=== PATIENT | female | born 1950 | race Caucasian/White ===

== ENCOUNTER → 2016-06-16 | Outpatient (CLI) | payer OTHER ==
--- NOTE | 2016-06-16 12:04 | REPMRS ---
Patient History The patient states she has not had a clinical breast exam in over a year. Patient is postmenopausal. Family history of breast cancer in niece under age 50. Digital Woman Screen Mammo: June 16, 2016 - Exam #: [id number] Bilateral CC and MLO view(s) were taken. Technologist: Jammie Witt, Technologist Prior study comparison: May 21, 2015, digital woman screen mammo performed at [facility]. December 06, 2013, digital woman screen mammo performed at [facility]. July 16, 2012, digital woman screen mammo performed at [facility]. FINDINGS: There are scattered fibroglandular densities. There has been no change in the appearance of the mammogram from the prior studies. There is a mild amount of scattered fibroglandular density which is fairly symmetric. There is no interval development of dominant mass, architectural distortion, or clustered microcalcification suggestive of malignancy. ASSESSMENT: BI-RADS/ACR category 1 mammogram. Negative. Recommendation Routine screening mammogram in 1 year (for women over age 40). This mammogram was interpreted with the aid of an FDA-approved computer-aided dectection system. Electronically Signed By: Joe Hines MD 06/16/16 [id number]
== END ==
LOC: M WHC 10:18
PROVIDERS: ATTEND Family Medicine
DX: Z12.39 Encounter for other screening for malignant neoplasm of breast (principal)

== ENCOUNTER → 2017-05-11 | Outpatient (REF) | payer OTHER ==
[2017-05-11 15:17] LABS: CHLAMYDIA DNA AMPLIFICATION NEGATIVE (NEGATIVE); GC DNA AMPLIFICATION NEGATIVE (NEGATIVE)
== END ==
LOC: M SFHCPLAZ 13:04
DX: L29.8 Other pruritus (principal)
CPT/HCPCS: 87186; 87205

== ENCOUNTER → 2017-08-31 | Outpatient (CLI) | payer OTHER | LOC: M WHC 13:01 | DX: Z12.31 Encounter for screening mammogram for malignant neoplasm of breast (principal) | CPT/HCPCS: 77067 ==

== ENCOUNTER 2018-07-20 15:09 | Emergency (ER) | payer MEDICARE, OTHER ==
[~2018-07-20] VITALS: Ht 154.9 cm; Wt 72.7 kg
[2018-07-20] MEDS ORDERED: LISI-538 OR (15:35)
[2018-07-20] MEDS ORDERED: CYAN1000VL IM (15:35)
[2018-07-20] MEDS ORDERED: NAPR-885 PO (15:35)
[2018-07-20] MEDS ORDERED: METF500T4 OR (15:35)
[2018-07-20] MEDS ORDERED: VITA500045 PO (15:35)
[2018-07-20] MEDS ORDERED: FERR325T3 PO (15:35)
[2018-07-20 15:46] LABS: BASO % 0.6 % (0.0-1.0); EOS # 0.4 10^3/uL (0.0-0.50); HEMATOCRIT 35.8 % (36.0-47.0); HEMOGLOBIN 11.7 g/dl (12.0-15.5); LYMPH # 3.1 10^3/uL (1.5-4.5); MEAN CORPUSCULAR HEMOGLOBIN 32.2 pg (27.0-33.0); MEAN CORPUSCULAR HGB CONC 32.7 g/dl (32.0-36.5); MEAN CORPUSCULAR VOLUME 98.6 fl (80.0-96.0); MONO # 0.4 10^3/uL (0.0-0.8); MONO % 5.9 % (0.0-5.0); NEUTROPHILS # 3.2 10^3/uL (1.8-7.7); NEUTROPHILS % 45.2 % (36.0-66.0); PLATELET COUNT, AUTOMATED 285 10^3/uL (150-450); RED BLOOD COUNT 3.63 10^6/uL (4.00-5.40); WHITE BLOOD COUNT 7.1 10^3/uL (4.0-10.0)
[2018-07-20 16:13] LABS: BLOOD UREA NITROGEN 19 MG/DL (7-18); CALCIUM LEVEL 8.4 MG/DL (8.8-10.2); CARBON DIOXIDE LEVEL 26 MEQ/L (21-32); CHLORIDE LEVEL 112 MEQ/L (98-107); CPK CREATINE PHOSPHOKINASE 213 U/L (26-192); CREATININE FOR GFR 0.74 MG/DL (0.55-1.30); GLOMERULAR FILTRATION RATE > 60.0 (>39); GLUCOSE, FASTING 102 MG/DL (70-100); POTASSIUM SERUM 3.8 MEQ/L (3.5-5.1); SODIUM LEVEL 144 MEQ/L (136-145); TROPONIN I < 0.02 NG/ML (< 0.10)
[2018-07-20] MEDS ORDERED: ISOVUE-370 76% 100ML VIAL (Q9967) As Ordered ONE (16:34)
--- NOTE | 2018-07-20 16:38 | REP ---
Portable chest x-ray: Single view. History: Chest pain radiating down the left arm and back. Findings: The lungs are symmetrically aerated and free of infiltrate. There is a small linear opacity in the left base consistent with plate-like atelectasis or conceivably scarring. Pleural angles are sharp. Heart size is normal. EKG electrodes are seen. Pulmonary vascular markings are normal. There are osteoarthritic changes in the shoulders. No acute bony abnormality. Impression: Linear fibrosis versus plate-like atelectasis left base. Otherwise no active disease. Electronically Signed by Cameron Hines MD 07/20/2018 10:32 P
--- NOTE | 2018-07-20 17:44 | REP ---
REASON FOR EXAM: Chest pain and dyspnea. COMPARISON: None. CONTRAST: 100 mL Isovue-370. There is excellent visualization of the pulmonary arterial vasculature. There are no focal filling defects present that would be considered consistent with pulmonary emboli. Although seen in somewhat of a limited fashion, the thoracic aorta is normal. There is no mediastinal or hilar adenopathy. There are no pleural or pericardial effusions. The imaged upper abdomen and imaged osseous structures are within normal limits. Evaluation of the lung mcdermott shows scattered curvilinear and patchy bibasilar opacities. There are a few incidental bilateral calcified granulomas. There is evidence of mild cylindrical basilar bronchiectasis. IMPRESSION:1. There is no evidence of a pulmonary embolus. 2. Bibasilar opacities most consistent with subsegmental atelectatic and or fibrotic changes. 3. Mild bibasilar cylindrical bronchiectasis. 4. Other findings are described above. Electronically Signed by Osmani Guzman DO 07/21/2018 10:21 A
--- NOTE | 2018-07-20 19:51 | ECGEPIP ---
Stationary ECG Study [facility] - ED Test Date: 2018-07-20 Pat Name: EDMOND GREY Department: Room: - Gender: F Business Systems Administrator: : 1950 Requested By: Roney Ybarra Order Number: [id number] Reading MD: Donnell Hawkins Measurements Intervals [place] Rate: 65 P: 22 MS: 166 QRS: -7 QRSD: 86 T: 46 QT: 431 QTc: 451 Interpretive Statements SINUS RHYTHM MINIMAL VOLTAGE CRITERIA FOR LVH, CONSIDER NORMAL VARIANT Low QRS complex voltage in the anterior leads Nonspecific T wave abnormality Comparison tracing not on file Electronically Signed On 07-20-2018 19:50:55 EDT by Donnell Hawkins
[2018-07-20 20:16] LABS: CPK CREATINE PHOSPHOKINASE 175 U/L (26-192); MB/CK RELATIVE INDEX 0.63 (< OR =4); TROPONIN I < 0.02 NG/ML (< 0.10)
[2018-07-20 20:49] VITALS: BP 164/74
--- NOTE | 2018-07-21 20:22 | ECGEPIP ---
Stationary ECG Study [facility] - ED Test Date: 2018-07-20 Pat Name: EDMOND GREY Department: Room: - Gender: F Career Developer: jillian : 1950 Requested By: Roney Ybarra Order Number: [id number] Reading MD: Nita Donis Measurements Intervals [place] Rate: 65 P: 40 NH: 160 QRS: -4 QRSD: 90 T: 52 QT: 410 QTc: 427 Interpretive Statements SINUS RHYTHM MINIMAL VOLTAGE CRITERIA FOR LVH, CONSIDER NORMAL VARIANT NONSPECIFIC T-WAVE ABNORMALITY SIMILAR 07/20/18 Electronically Signed On 07-21-2018 20:21:53 EDT by Nita Donis
== END 2018-07-20 20:52 | disposition home or self-care (01) ==
LOC: EDBD 15:09 → M ED 15:09
DX: R07.89 Other chest pain (principal); E11.9 Type 2 diabetes mellitus without complications; I10 Essential (primary) hypertension; Z86.79 Personal history of other diseases of the circulatory system; Z82.49 Family history of ischemic heart disease and other diseases of the circulatory system
CPT/HCPCS: 36415; 71045; 71275; 80048; 82550; 82553; 84484; 85025; 93005; 93041; 94760; 99285; Q9967

== ENCOUNTER → 2018-08-11 | Outpatient (REF) | payer MEDICARE ==
[~2018-08-11] MED LIST: CYAN1000VL IM; FERR325T3 PO; LISI-538 OR; METF500T4 OR; NAPR-885 PO; VITA500045 PO
[2018-08-11 13:31] LABS: APPEARANCE, URINE CLEAR (CLEAR); BACTERIA, URINE AUTO NEGATIVE (NEGATIVE); BILIRUBIN, URINE AUTO NEGATIVE (NEGATIVE); BLOOD, URINE BLOOD NEGATIVE (NEGATIVE); COLOR, URINE YELLOW (YELLOW); GLUCOSE, URINE (UA) AUTO NEGATIVE (NEGATIVE); KETONE, URINE AUTO NEGATIVE (NEGATIVE); LEUKOCYTE ESTERASE, URINE AUTO 2+ (NEGATIVE); NITRITE, URINE AUTO NEGATIVE (NEGATIVE); PROTEIN, URINE AUTO NEGATIVE (NEGATIVE); RBC, URINE AUTO 2 /HPF (0-3); SQUAMOUS EPITHELIAL CELL UR AU 4 /HPF (0-6); WBC, URINE AUTO 12 /HPF (0-3)
== END ==
LOC: M SFHCPLAZ 13:07
PROVIDERS: ATTEND Physician Assistant Medical
DX: R30.0 Dysuria (principal)
CPT/HCPCS: 81001; 87086; G0463

== ENCOUNTER → 2018-08-13 | Outpatient (REF) | payer MEDICARE ==
[2018-08-17 14:11] LABS: HPV HYBRID CAPTURE II Negative (Negative)
== END ==
LOC: M SFHCWAGY 10:49
PROVIDERS: ATTEND Nurse Practitioner Women's Health
DX: Z12.4 Encounter for screening for malignant neoplasm of cervix (principal); N95.8 Other specified menopausal and perimenopausal disorders
CPT/HCPCS: 87624; G0101; G0123

== ENCOUNTER → 2018-09-01 | Outpatient (CLI) | payer MEDICARE ==
--- NOTE | 2018-09-01 13:47 | REPMRS ---
Patient History The patient states she has not had a clinical breast exam in over a year. Family history of breast cancer under age 50 in niece. No Hormone Replacement Therapy 3D TOMOSYNTHESIS WAS PERFORMED. The Henny Nickerson lifetime risk for breast cancer is 3.3%. Digital Woman Screen Mammo: September 01, 2018 - Exam #: [id number] Bilateral CC and MLO view(s) were taken. Technologist: Jammie Witt, Technologist Prior study comparison: August 31, 2017, bilateral digital woman screen mammo performed at [facility]. June 16, 2016, digital woman screen mammo performed at [facility]. FINDINGS: There are scattered fibroglandular densities. There has been no change in the appearance of the mammogram from the prior studies. There is a mild amount of residual fibroglandular tissue which is fairly symmetric. There is no interval development of dominant mass, architectural distortion, or clustered microcalcification suggestive of malignancy. Assessment: BI-RADS/ACR category 1 mammogram. Negative Mammogram. Recommendation Routine screening mammogram in 1 year (for women over age 40). This mammogram was interpreted with the aid of an FDA-approved computer-aided dectection system. Electronically Signed By: Mike Otto MD 09/01/18 [id number]
== END ==
LOC: M WHC 12:36
PROVIDERS: ATTEND Physician Assistant Medical
DX: Z12.31 Encounter for screening mammogram for malignant neoplasm of breast (principal)

== ENCOUNTER → 2019-05-21 | Outpatient (CLI) | payer MEDICARE ==
[~2019-05-21] MED LIST changes: +METF-791 OR; -METF500T4 OR
--- NOTE | 2019-05-23 08:10 | REP ---
MRI lumbar spine without contrast: History: Degenerative joint disease of the lumbar spine. Comparison radiographs are from April 26, 2019. Technique: Sagittal and axial T1 and T2-weighted scans are acquired in the usual fashion with and without fat saturation. Sequences include spin echo, turbo spin-echo, and STIR imaging sequences. MRI findings: There is an intact disc at the S1-S2 disc level. Lumbar vertebral body heights are preserved. There is some straightening. Conus medullaris tip is noted in good position at L1-L2 disc. There are diffuse degenerative disc disease changes in the lumbar spine with disc space narrowing and signal intensity alteration. There are marrow edema changes on either side of the L4-5 and L2-3 and L3-4 discs. No bony destructive lesion is appreciated. Axial and sagittal images taken at the L1-2 disc level demonstrate minimal central disc bulging. No other finding. At L2-L3, there is mild to moderate central canal stenosis due to diffuse disc bulging and osteophytic ridging, developmentally short pedicles, ligamentum flavum and minimal facet hypertrophy. Midline AP dimension of the thecal sac at the L2-3 intervertebral disc level is 7.5 mm. No foraminal narrowing. At the L3-4 disc level, there is a grade 1 degenerative, 3 mm, spondylolisthesis due to degenerative disc disease and facet osteoarthritis. There is moderate central canal stenosis due to these factors along with diffuse disc bulging and ligamentum flavum and facet hypertrophy. Developmentally short pedicles contribute. The midline AP dimension of the thecal sac is only 5.4 mm and CSF signal is effaced from the thecal sac at the L3-4 disc level due to the spinal stenosis. There is bilateral foraminal disc bulging right a little more so than left at L3-4 as well. The nerve roots do not appear to be compressed or displaced however. At L4-L5, there is facet and ligamentum flavum hypertrophy. There is mild foraminal narrowing on the left at L4-5 due to disc bulging and discogenic spurring along with facet hypertrophy. Canal size is borderline. At L5-S1, there is moderate facet hypertrophy. Mild diffuse disc bulging is seen. There is facet hypertrophy and disc bulging in the neural foramina bilaterally, but nerve roots are surrounded by epidural fat do not appear compressed. The S1-S2 disc margin is unremarkable. Impression: Diffuse degenerative spondylosis changes. The dominant abnormality is moderate central canal stenosis at L3-4. There is mild to moderate central canal stenosis at L2-3. Electronically Signed by Cameron Hines MD 05/23/2019 10:51 A
== END ==
LOC: M RAD 11:00
PROVIDERS: ATTEND Family Medicine
DX: M48.061 Spinal stenosis, lumbar region without neurogenic claudication (principal); M51.36 Other intervertebral disc degeneration, lumbar region; M47.816 Spondylosis without myelopathy or radiculopathy, lumbar region

== ENCOUNTER → 2019-09-14 | Outpatient (CLI) | payer MEDICARE ==
[~2019-09-14] MED LIST changes: -METF-791 OR; +METF-838 OR
--- NOTE | 2019-09-14 16:38 | REPMRS ---
Patient History The patient states she has not had a clinical breast exam in over a year. Family history of breast cancer under age 50 in niece. No Hormone Replacement Therapy Digital Woman Screen Mammo: September 14, 2019 - Exam #: [id number] Bilateral CC and MLO view(s) were taken. Technologist: Valencia Orr, Technologist Prior study comparison: September 01, 2018, bilateral digital woman screen mammo performed at [facility]. August 31, 2017, bilateral digital woman screen mammo performed at [facility]. June 16, 2016, digital woman screen mammo performed at [facility]. FINDINGS: The breast tissue is almost entirely fat. The Volpara volumetric breast density category is: A. There has been no change in the appearance of the mammogram from the prior studies. There is no interval development of dominant mass, architectural distortion, or grouped microcalcification typical of malignancy. 3-D tomosynthesis shows no additional findings. Assessment: BI-RADS/ACR category 1 mammogram. Negative Mammogram. Recommendation Routine screening mammogram of both breasts in 1 year (for women over age 40). This patient's Lifetime Breast Cancer RIsk is estimated at 3.1 %. This mammogram was interpreted with the aid of an FDA-approved computer-aided dectection system. Electronically Signed By: Joe Hines MD 09/14/19 6503
== END ==
LOC: M WHC 15:19
PROVIDERS: ATTEND Family Medicine
DX: Z12.31 Encounter for screening mammogram for malignant neoplasm of breast (principal)

== ENCOUNTER → 2020-03-22 | Outpatient (CLI) | payer MEDICARE ==
[~2020-03-22] MED LIST changes: +ASPI81CH33 PO; +KETO10TAB PO; +METO1TAB32
--- NOTE | 2020-03-22 12:16 | REP ---
INDICATION: HX OF CEREBRAL ANEURYSM, HEADACHE COMPARISON: None. TECHNIQUE: Axial noncontrast images from the skull base to the vertex with coronal reformations. This CT examination was performed using the following dose reduction techniques: Automated exposure control, adjustment of mA and/or kv according to the patient's size, and use of iterative reconstruction technique. FINDINGS: The ventricles, sulci, and cisterns are normal in position and appearance. Otto-white differentiation is maintained. No acute intracranial hemorrhage, mass/mass effect, pathology or trauma/injury. No evidence for acute infarction. No extra-axial fluid collection. Calvarium is intact. Paranasal sinuses and mastoid air cells are clear. IMPRESSION: Normal noncontrast head CT. No evidence for acute intracranial pathology or trauma/injury. <Electronically signed by Matty Walker > 03/22/20 [id number]
== END ==
LOC: M RAD 11:55
PROVIDERS: ATTEND Family Medicine
DX: R51.9 Headache, unspecified (principal); Z86.79 Personal history of other diseases of the circulatory system
CPT/HCPCS: 70450; G0463

== ENCOUNTER → 2020-03-23 | Outpatient (CLI) | payer MEDICARE ==
--- NOTE | 2020-03-23 16:03 | REP ---
INDICATION: HX CEREBRAL ANEURYSM, SEVERE HEADACHE. COMPARISON: Comparison is made with MRI study of the brain from March 24, 2006.. TECHNIQUE: Axial and sagittal imaging planes are utilized for T1 and T2-weighted scans. Sequences include spin-echo, fast spin echo, FLAIR, and diffusion weighted sequences. FINDINGS: No bony calvarial lesion is seen. Craniocervical junction and upper cervical cord are normal in appearance. There is no MR evidence of significant paranasal sinus disease. No intraorbital abnormality is seen. The lateral, third, and fourth ventricles are normal in size and position. Otto-white differentiation pattern is intact above and below the tentorium. There is no evidence of intracranial hemorrhage. No mass, infarction, extra-axial fluid collection or midline shift is seen. No abnormal white matter lesion is seen. There are scattered foci of T2 hyperintensity in the subcortical and periventricular white matter of the supratentorial brain bilaterally. These are similar to but more numerous than the prior study March 24, 2006. IMPRESSION: Small-vessel atherosclerotic changes somewhat raw are prominent than on the 2006 prior study. Otherwise unremarkable MRI study of the brain.. <Electronically signed by Joe Hines > 03/23/20 [id number]
== END ==
LOC: M PLARAD 12:46
PROVIDERS: ATTEND Family Medicine
DX: R51.9 Headache, unspecified (principal); Z86.79 Personal history of other diseases of the circulatory system

== ENCOUNTER → 2020-03-29 | Outpatient (CLI) | payer MEDICARE ==
--- NOTE | 2020-03-29 09:38 | REPVR ---
PROCEDURE INFORMATION: Exam: MR Angiogram Head Without Contrast, Arteries Exam date and time: 03/29/2020 9:07 AM Age: 70 years old Clinical indication: Pain; Headache; Patient HX: H/a; Additional info: Headaches TECHNIQUE: Imaging protocol: MR angiogram head without contrast. Exam focused on the arteries. 3D rendering (Not supervised by radiologist): MIP and/or 3D reconstructed images were created by the technologist. COMPARISON: MRI-Brain without Contrast 03/23/2020 1:46 PM FINDINGS: ANTERIOR CIRCULATION: Right internal carotid artery: Mild to moderate narrowing of the cavernous segment of the right internal carotid artery. No occlusion. No aneurysm. Right middle cerebral artery: No occlusion or significant stenosis. No aneurysm. Right anterior cerebral artery: No occlusion or significant stenosis. No aneurysm. Left internal carotid artery: Mild narrowing of the cavernous segment of the left internal carotid artery. No occlusion. No aneurysm. Left middle cerebral artery: No occlusion or significant stenosis. No aneurysm. Left anterior cerebral artery: No occlusion or significant stenosis. No aneurysm. POSTERIOR CIRCULATION: Right vertebral artery: Right vertebral artery is diminutive in caliber and terminates as PICA, normal variant. Left vertebral artery: Dominant unremarkable left vertebral artery. Basilar artery: No occlusion or significant stenosis. No aneurysm. Right posterior cerebral artery: No occlusion or significant stenosis. No aneurysm. Left posterior cerebral artery: No occlusion or significant stenosis. No aneurysm. IMPRESSION: Mild to moderate narrowing of the cavernous segment of the right internal carotid artery. Mild narrowing of the cavernous segment of the left internal carotid artery. No occlusion. No aneurysm. Right vertebral artery is diminutive in caliber and terminates as PICA, normal variant. Electronically signed by: Carine Trejo On 03/29/2020 09:38:30 AM
== END ==
LOC: M RAD 06:51
PROVIDERS: ATTEND Family Medicine
DX: R51.9 Headache, unspecified (principal); Z86.79 Personal history of other diseases of the circulatory system; I65.21 Occlusion and stenosis of right carotid artery

== ENCOUNTER 2020-05-08 13:26 | Outpatient (CLI) | payer MEDICARE ==
[~2020-05-08] VITALS: Ht 154.9 cm; Wt 79.8 kg
[~2020-05-08 13:26] MED LIST changes: +ALBUTEROL 90 MCG/ACT 8GM HFA INHALER INH PRN; +ALBUTEROL SULFATE 2.5 MG/0.5 ML INH NEB SOLN INH PRN; +EPINEPHrine INJ 1 MG/ML 1ML AMP IM PRN; -LISI-538 OR; +LISI20TA33 OR; +NS 1,000 ML IV SCH; +diphenhydrAMINE 50MG/ML VIAL (J1200) IV PRN; +methylPREDNISolone 125MG 2ML VIAL IV PRN
[2020-05-08 14:29] VITALS: BP 158/81
[2020-05-08] MEDS ORDERED: CASIRIVIMAB (REGN10933) 1,200 MG, IMDEVIMAB (REGN10987) 1,200 MG in NS 230 ML IV ONE (15:00)
[2020-05-08 15:45] VITALS: BP 147/79
[2020-05-08 16:14] VITALS: BP 157/76
[2020-05-08 16:52] VITALS: BP 164/81
[2020-05-08 17:26] VITALS: BP 142/80
[2020-05-08 18:02] VITALS: BP 148/82
[2020-05-09] MEDS ORDERED: UNRESOLVED CLARIFICATION ENTRY XX SCH (00:01)
== END 2020-05-08 18:15 | disposition home or self-care (01) ==
LOC: M OPCLI4PR 13:26 → M 4MAIN 13:48 → M OPCLI4PR 18:15
PROVIDERS: ATTEND Family Medicine
DX: U07.1 COVID-19 (principal)

== ENCOUNTER → 2020-05-25 | Outpatient (CLI) | payer MEDICARE ==
[~2020-05-25] MED LIST changes: -ALBUTEROL 90 MCG/ACT 8GM HFA INHALER INH PRN; -ALBUTEROL SULFATE 2.5 MG/0.5 ML INH NEB SOLN INH PRN; -EPINEPHrine INJ 1 MG/ML 1ML AMP IM PRN; -NS 1,000 ML IV SCH; -diphenhydrAMINE 50MG/ML VIAL (J1200) IV PRN; -methylPREDNISolone 125MG 2ML VIAL IV PRN
--- NOTE | 2020-05-25 14:30 | REPPI ---
INDICATION: COUGH, POST COVID-19 COMPARISON: 02/21/2020 TECHNIQUE: PA and lateral. FINDINGS: The mediastinum and cardiac silhouette are normal. The lung mcdermott are clear and without acute consolidation, effusion, or pneumothorax. Chronic linear scarring in the left lower lung zone again noted. The skeletal structures are intact and normal. IMPRESSION: No acute cardiopulmonary process. <Electronically signed by Matty Walker > 05/25/20 [id number]
== END ==
LOC: M PLAIMG 14:08
PROVIDERS: ATTEND Physician Assistant
DX: R05 Cough (principal); B94.8 Sequelae of other specified infectious and parasitic diseases

== ENCOUNTER → 2020-09-26 | Outpatient (CLI) | payer MEDICARE ==
--- NOTE | 2020-09-26 09:32 | REP ---
INDICATION: Z12.39 SCREENING MAMMO. COMPARISON: Multiple TECHNIQUE: Digital screening mammography was carried out bilaterally in the CC and MLO projections using both 2D and 3D modalities and compared to the prior exams. By history, the patient has no complaints of a palpable breast abnormality or other significant breast complaints.. FINDINGS: The breasts are unchanged in size and shape. Once again, a few scattered heterogenous dense fibroglandular elements are seen bilaterally. In the left breast near the 12 o'clock position there is a very subtle potential hailee slightly asymmetric density. There are no other suspicious features seen in either breast. There are no microcalcifications. There is no skin thickening or nipple retraction. The Volpara volumetric breast density pattern is b. IMPRESSION: BIRADS/ACR category 0 mammogram. Subtle potential hailee density in the left breast as described above for which diagnostic digital magnified spot compression views are recommended in the CC and MLO projections. The spot compression view should be obtained using DBT technique. This patient's Tyrer-Cuzick lifetime breast cancer risk assessment score is 2.9 %. This mammogram was interpreted with the aid of an FDA-approved computer-aided detection system. The patient states she had a clinical breast exam in over a year. The patient letter being requested is M0. RECOMMENDATION: As above <Electronically signed by Osmani Guzman > 09/26/20 0922
--- NOTE | 2020-09-26 09:54 | DEXAMM ---
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 COMPARISON: March 24, 2013 and April 22, 2002.. TECHNIQUE: Bone density was measured using dual-energy x-ray absorptionmetry (DEXA). FINDINGS: AP SPINE L1-L4 BMD 1.618 g/cm2 Young Adult T-Score 3.6 Age Matched Z-Score 5.4. LT FEMUR, TOTAL BMD 1.111 g/cm2 Young Adult T-Score 0.8 Age Matched Z-Score 2.4. LT NECK BMD 1.027 g/cm2 Young Adult T-Score -0.1 Age Matched Z-Score 1.7. RT FEMUR, TOTAL BMD 1.000 g/cm2 Young Adult T-Score -0.1 Age Matched Z-Score 1.5. RT NECK BMD 0.955 g/cm2 Young Adult T-Score -0.6 Age Matched Z-Score 1.2. IMPRESSION: There is normal bone density of the spine. There is normal bone density of the left hip. There is normal bone density of the right hip. The density of the spine has increased 13.7% since the initial exam on April 22, 2002. The density of the spine increased 5.2% since most recent exam on March 24, 2013. The density of the left hip has increased 6.5% since initial exam on April 22, 2002. The density of the left hip has decreased 2.0% since most recent exam on March 24, 2013. The density of the right hip has decreased 8.9% since the initial exam on April 22, 2002. The density of the right hip has decreased 5.5% since the most recent exam on March 24, 2013. FOLLOW-UP: Recommendation for the next bone density exam: 5 years. <Electronically signed by Joe Hines > 09/26/20 0950
== END ==
LOC: M WHC 07:20
PROVIDERS: ATTEND Family Medicine
DX: Z12.31 Encounter for screening mammogram for malignant neoplasm of breast (principal); Z13.820 Encounter for screening for osteoporosis; R92.8 Other abnormal and inconclusive findings on diagnostic imaging of breast; M85.89 Other specified disorders of bone density and structure, multiple sites

== ENCOUNTER → 2020-10-12 | Outpatient (CLI) | payer MEDICARE ==
--- NOTE | 2020-10-12 10:44 | REP ---
INDICATION: ADDITIONAL VIEWS LT BREAST. COMPARISON: Comparison mammography September 26, 2020, September 14, 2019, and September 01, 2018. TECHNIQUE: Magnified focal spot-compression CC and MLO views of the left breast are obtained. Spot Mag with 3D [place] views were obtained. A true mediolateral view with tomography was carried out. Rolled craniocaudal views were obtained as well. Targeted left breast sonography is performed through the superior half of the left breast. This mammogram was interpreted with the aid of an FDA-approved computer-aided detection system. FINDINGS: Minimal fibroglandular densities are seen. The breast is predominantly fat replaced. Diagnostic images today do not definitely identify a nodular density in the superomedial quadrant. Questionable nodular density is seen in the upper outer quadrant rather than the superomedial quadrant. This is not definitely confirmed on diagnostic images. The Volpara volumetric breast density pattern is B. Targeted ultrasound: The superior half of the left breast is examined sonographically, 9:00 to 3:00. Fairly homogeneous fibroglandular background echotexture is seen. No cyst or mass is observed. No sonographic abnormality. IMPRESSION: BIRADS/ACR category 3 probably benign left breast mammographic and sonographic findings. The faint for 3 mm target identified in the superomedial quadrant on screening study is not definitely confirmed on diagnostic images. Negative ultrasound. This patient's Tyrer-Cuzick lifetime breast cancer risk assessment score is 2.9%. RECOMMENDATION: Repeat left breast mammography in 6 months time is recommended.. The patient letter being requested is M 3. <Electronically signed by Joe Hines > 10/12/20 [id number]
== END ==
LOC: M WHC 09:06
PROVIDERS: ATTEND Family Medicine
DX: N63.21 Unspecified lump in the left breast, upper outer quadrant (principal)

== ENCOUNTER → 2020-11-23 | Outpatient (CLI) | payer MEDICARE ==
[2020-11-23 13:55] LABS: HEMOGLOBIN A1c 5.8 %
== END ==
LOC: M PLALAB 11:11
PROVIDERS: ATTEND Physician Assistant Medical
DX: E11.9 Type 2 diabetes mellitus without complications (principal)

== ENCOUNTER → 2021-04-25 | Outpatient (CLI) | payer MEDICARE | LOC: M WHC 10:09 | PROVIDERS: ATTEND Physician Assistant Medical | DX: R92.8 Other abnormal and inconclusive findings on diagnostic imaging of breast (principal) | CPT/HCPCS: 77065; G0279 ==

== ENCOUNTER → 2021-12-04 | Outpatient (CLI) | payer MEDICARE | LOC: M WHC 08:11 | PROVIDERS: ATTEND Family Medicine | DX: Z12.31 Encounter for screening mammogram for malignant neoplasm of breast (principal); M85.80 Other specified disorders of bone density and structure, unspecified site; R92.8 Other abnormal and inconclusive findings on diagnostic imaging of breast ==

== ENCOUNTER → 2021-12-31 | Outpatient (CLI) | payer MEDICARE | LOC: M PLAIMG 08:43 | PROVIDERS: ATTEND Family Medicine | DX: M47.816 Spondylosis without myelopathy or radiculopathy, lumbar region (principal) ==

== ENCOUNTER → 2022-01-14 | Outpatient (CLI) | payer MEDICARE | LOC: M WHC 07:44 | PROVIDERS: ATTEND Family Medicine | DX: Z12.31 Encounter for screening mammogram for malignant neoplasm of breast (principal); Z12.39 Encounter for other screening for malignant neoplasm of breast | CPT/HCPCS: 77065; G0279 ==

== ENCOUNTER 2022-03-21 12:20 | Emergency (ER) | payer MEDICARE ==
[~2022-03-21] VITALS: Ht 157.5 cm; Wt 68.6 kg
[2022-03-21 13:36] LABS: BASO % 0.4 % (0.0-1.0); EOS # 0.2 10^3/uL (0.0-0.5); EOS % 2.2 % (0.0-3.0); HEMATOCRIT 39.5 % (36.0-47.0); HEMOGLOBIN 12.9 g/dl (12.0-15.5); LYMPH % 40.8 % (24.0-44.0); MEAN CORPUSCULAR HEMOGLOBIN 31.8 pg (27.0-33.0); MEAN CORPUSCULAR HGB CONC 32.7 g/dl (32.0-36.5); MEAN CORPUSCULAR VOLUME 97.3 fl (80.0-96.0); MONO # 0.6 10^3/uL (0.0-0.8); MONO % 8.6 % (2.0-8.0); NEUTROPHILS # 3.5 10^3/uL (1.5-8.5); NEUTROPHILS % 47.9 % (36.0-66.0); PLATELET COUNT, AUTOMATED 285 10^3/uL (150-450); RED BLOOD COUNT 4.06 10^6/uL (4.00-5.40); WHITE BLOOD COUNT 7.4 10^3/uL (4.0-10.0)
[2022-03-21 14:01] LABS: CK-MB VALUE MASS < 1.0 NG/ML (<3.6)
[2022-03-21 14:02] LABS: BLOOD UREA NITROGEN 27 MG/DL (9-23); CALCIUM LEVEL 9.8 MG/DL (8.3-10.6); CARBON DIOXIDE LEVEL 26 MMOL/L (20-31); CHLORIDE LEVEL 102 MMOL/L (98-107); CPK CREATINE PHOSPHOKINASE 101 U/L (34-145); GLOMERULAR FILTRATION RATE > 60.0 (>39); GLUCOSE, FASTING 91 MG/DL (74-106); MB/CK RELATIVE INDEX 0.99 (< OR =4); POTASSIUM SERUM 4.6 MMOL/L (3.5-5.1); SODIUM LEVEL 140 MMOL/L (136-145)
[2022-03-21 15:16] LABS: LIPASE 37 U/L (12-53)
[2022-03-21 15:18] LABS: ALBUMIN 3.7 G/DL (3.2-5.2); ALKALINE PHOSPHATASE 93 U/L (46-116); ALT/SGPT 17 U/L (7.0-40); AST/SGOT 16 U/L (<34); BILIRUBIN,DIRECT < 0.1 MG/DL (<0.4); BILIRUBIN,TOTAL 0.3 MG/DL (0.3-1.2); CK-MB VALUE MASS < 1.0 NG/ML (<3.6); TOTAL PROTEIN 6.3 G/DL (5.7-8.2)
[2022-03-21 15:22] LABS: CPK CREATINE PHOSPHOKINASE 104 U/L (34-145); MB/CK RELATIVE INDEX 0.96 (< OR =4)
[2022-03-21 17:00] VITALS: BP 111/59
[2022-03-21] MEDS ORDERED: OMEP40CA4 PO (17:45)
[2022-03-21] MEDS ORDERED: SUCR1TA PO (17:45)
== END 2022-03-21 17:59 | disposition home or self-care (01) ==
LOC: M ED 12:20
DX: R07.89 Other chest pain (principal); E11.9 Type 2 diabetes mellitus without complications; I10 Essential (primary) hypertension; E78.5 Hyperlipidemia, unspecified; E53.8 Deficiency of other specified B group vitamins; K76.0 Fatty (change of) liver, not elsewhere classified; Z82.49 Family history of ischemic heart disease and other diseases of the circulatory system; Z79.84 Long term (current) use of oral hypoglycemic drugs; Z79.82 Long term (current) use of aspirin; Z79.899 Other long term (current) drug therapy

== ENCOUNTER → 2022-06-19 | Outpatient (REF) | payer MEDICARE ==
[~2022-06-19] MED LIST changes: +OMEP40CA4 PO; +SUCR1TA PO
[2022-06-19 17:37] LABS: APPEARANCE, URINE CLEAR (CLEAR); BACTERIA, URINE AUTO 1+ (NEGATIVE); BILIRUBIN, URINE AUTO NEGATIVE (NEGATIVE); BLOOD, URINE BLOOD NEGATIVE (NEGATIVE); COLOR, URINE STRAW (YELLOW); GLUCOSE, URINE (UA) AUTO NEGATIVE (NEGATIVE); KETONE, URINE AUTO NEGATIVE (NEGATIVE); LEUKOCYTE ESTERASE, URINE AUTO TRACE (NEGATIVE); NITRITE, URINE AUTO NEGATIVE (NEGATIVE); PROTEIN, URINE AUTO NEGATIVE (NEGATIVE); RBC, URINE AUTO 0 /HPF (0-3); SPECIFIC GRAVITY URINE AUTO 1.006 (1.002-1.035); SQUAMOUS EPITHELIAL CELL UR AU 1 /HPF (0-6); UROBILINOGEN, URINE AUTO 0.2 mg/dL (0.0-2.0); WBC, URINE AUTO 2 /HPF (0-3)
== END ==
LOC: M SFHCPLAZ 16:53
PROVIDERS: ATTEND Family Medicine
DX: N39.0 Urinary tract infection, site not specified (principal)

== ENCOUNTER → 2022-09-25 | Outpatient (REF) | payer MEDICARE | LOC: M SFHCPLAZ 19:15 | PROVIDERS: ATTEND Family Medicine | DX: E11.9 Type 2 diabetes mellitus without complications (principal); D50.9 Iron deficiency anemia, unspecified; E78.5 Hyperlipidemia, unspecified ==

== ENCOUNTER → 2023-01-08 | Outpatient (REF) | payer MEDICARE ==
[2023-01-08 18:48] LABS: APPEARANCE, URINE HAZY (CLEAR); BACTERIA, URINE AUTO 1+ (NEGATIVE); BILIRUBIN, URINE AUTO NEGATIVE (NEGATIVE); BLOOD, URINE BLOOD NEGATIVE (NEGATIVE); COLOR, URINE YELLOW (YELLOW); GLUCOSE, URINE (UA) AUTO NEGATIVE (NEGATIVE); KETONE, URINE AUTO NEGATIVE (NEGATIVE); LEUKOCYTE ESTERASE, URINE AUTO 3+ (NEGATIVE); NITRITE, URINE AUTO NEGATIVE (NEGATIVE); PROTEIN, URINE AUTO 1+ mg/dL (NEGATIVE); RBC, URINE AUTO 5 /HPF (0-3); SPECIFIC GRAVITY URINE AUTO 1.016 (1.002-1.035); SQUAMOUS EPITHELIAL CELL UR AU 3 /HPF (0-6); UROBILINOGEN, URINE AUTO 0.2 mg/dL (0.0-2.0); WBC, URINE AUTO TNTC /HPF (0-3)
== END ==
LOC: M SFHCLERA 17:17
PROVIDERS: ATTEND Physician Assistant
DX: R39.15 Urgency of urination (principal)

== ENCOUNTER → 2023-01-16 | Outpatient (CLI) | payer MEDICARE | LOC: M WHC 10:18 | PROVIDERS: ATTEND Family Medicine | DX: Z12.31 Encounter for screening mammogram for malignant neoplasm of breast (principal) ==

== ENCOUNTER → 2023-02-10 | Outpatient (REF) | payer MEDICARE | LOC: M SFHCPLAZ 14:09 | PROVIDERS: ATTEND Family Medicine | DX: E55.9 Vitamin D deficiency, unspecified (principal); E11.9 Type 2 diabetes mellitus without complications; E53.8 Deficiency of other specified B group vitamins ==

== ENCOUNTER → 2023-02-12 | Outpatient (REF) | payer MEDICARE | LOC: M SFHCWAGY 10:45 | PROVIDERS: ATTEND Nurse Practitioner Family | DX: L90.0 Lichen sclerosus et atrophicus (principal) ==

== ENCOUNTER → 2024-01-14 | Outpatient (CLI) | payer MEDICARE | LOC: M WHC 09:39 | PROVIDERS: ATTEND Family Medicine | DX: Z13.820 Encounter for screening for osteoporosis (principal); Z12.31 Encounter for screening mammogram for malignant neoplasm of breast; M85.88 Other specified disorders of bone density and structure, other site ==

== ENCOUNTER → 2024-01-25 | Outpatient (CLI) | payer MEDICARE | LOC: M WHC 07:43 | PROVIDERS: ATTEND Family Medicine | DX: Z12.31 Encounter for screening mammogram for malignant neoplasm of breast (principal) ==

== ENCOUNTER → 2024-03-24 | Outpatient (CLI) | payer MEDICARE | LOC: M PLAIMG 12:22 | PROVIDERS: ATTEND Family Medicine | DX: M19.012 Primary osteoarthritis, left shoulder (principal); S46.012A Strain of muscle(s) and tendon(s) of the rotator cuff of left shoulder, initial encounter; X58.XXXA Exposure to other specified factors, initial encounter; Y92.9 Unspecified place or not applicable; Y93.9 Activity, unspecified; Y99.9 Unspecified external cause status ==

== ENCOUNTER → 2025-02-01 | Outpatient (CLI) | payer MEDICARE | LOC: M WHC 09:09 | PROVIDERS: ATTEND Family Medicine | DX: Z12.31 Encounter for screening mammogram for malignant neoplasm of breast (principal) ==